=== PATIENT | female | born 1945 | race Caucasian/White ===

== ENCOUNTER 2019-06-26 12:17 | Emergency (ER) | payer BC, OTHER ==
[~2019-06-26] VITALS: Ht 170.2 cm; Wt 62.6 kg
[2019-06-26 12:24] VITALS: BP_SYST 120
--- NOTE | 2019-06-26 12:31 | NUR ---
Patient to ER bed 6 to gown for evaluation. Side rails up. Report given to Fran LEIJA.
--- NOTE | 2019-06-26 12:31 | NUR ---
Patient is awake, alert, and oriented x4. Kimber reports that she was getting up from her couch on afternoon and started feeling pain in her left knee. Patient is complaining of sharp left knee pain 9/10, made worse when she extends her leg.
--- NOTE | 2019-06-26 12:34 | NUR ---
ER at bedside examining patient.
[2019-06-26] MEDS ORDERED: KETOROLAC TROMETHAMINE 60 MG/2 ML VIAL IM ONE (12:45)
--- NOTE | 2019-06-26 13:03 | NUR ---
PATIENT GETTING X RAY IN BED.
[2019-06-26 13:49] VITALS: BP_SYST 120
--- NOTE | 2019-06-26 13:49 | NUR ---
Patient given written and verbal discharge instructions and verbalizes understanding. ER MD discussed with patient the results and treatment provided. Patient in stable condition. ID arm band removed. Rx of naproxen, tramadol given. Patient educated on pain management and to follow up with PMD. Pain Scale 0/10. Opportunity for questions provided and answered. Medication side effect fact sheet provided.
== END 2019-06-26 13:49 | disposition home or self-care (01) ==
LOC: SED 12:17
DX: S83.92XA Sprain of unspecified site of left knee, initial encounter (principal); Z88.5 Allergy status to narcotic agent; X58.XXXA Exposure to other specified factors, initial encounter; Y93.89 Activity, other specified; Y92.89 Other specified places as the place of occurrence of the external cause; Y99.8 Other external cause status
CPT/HCPCS: 73564; 96372; 99283; J1885

== ENCOUNTER 2019-10-20 16:06 | Emergency (ER) | payer OTHER ==
[~2019-10-20] VITALS: Ht 170.2 cm; Wt 63.5 kg
[2019-10-20 16:45] VITALS: BP_SYST 140
--- NOTE | 2019-10-20 16:50 | NUR ---
Patient to ER bed 03 to gown for evaluation. Side rails up.
--- NOTE | 2019-10-20 16:53 | NUR ---
Patient arrived in the ED c/o mild abdominal pain with vomiting x3 for 1 day. Denied any shortness of breath. Alert and oriented x4, respirations even and unlabored, ambulating with a steady gait, speaking in full sentences. VS WNL, pain level 6/10. at bedside. Informed of the wait time. Instructed to notify ED staff if there are any changes in condition or worsening of symptoms. Patient verbalized understanding.
--- NOTE | 2019-10-20 16:55 | NUR ---
ECG done at bedside. Patient tolerated the procedure well.
[2019-10-20 16:58] LABS: BASOPHILS % (AUTO) 0.4 % (0.0-2.0); EOSINOPHILS % (AUTO) 0.6 % (0.0-4.0); HEMATOCRIT 45.9 % (36-48); HEMOGLOBIN 15.4 g/dL (12.0-16.0); LYMPHOCYTES # (AUTO) 0.8 K/uL (1.0-5.5); LYMPHOCYTES % (AUTO) 8.8 % (20.5-51.5); MEAN CORPUSCULAR HEMOGLOBIN 32 pg (27-31); MEAN CORPUSCULAR HGB CONC 34 % (32-36); MEAN CORPUSCULAR VOLUME 94 fL (79.0-98.0); MONOCYTES # (AUTO) 0.5 K/uL (0.0-1.0); MONOCYTES % (AUTO) 5.5 % (1.7-9.3); NEUTROPHILS # (AUTO) 7.2 K/uL (1.8-7.7); NEUTROPHILS % (AUTO) 84.7 % (40.0-70.0); PLATELET COUNT (AUTO) 138 K/uL (130-430); RED BLOOD CELL COUNT(AUTO) 4.89 MIL/uL (4.2-6.2); RED CELL DISTRIBUTION WIDTH 14.4 % (9.0-15.0); WHITE BLOOD COUNT (AUTO) 8.5 K/uL (4.8-10.8)
[2019-10-20 17:03] LABS: ANION GAP 10 (5-15); CALCIUM 7.9 mg/dL (8.4-11.0); CHLORIDE 98 mmol/L (98-107); CREATININE 0.71 mg/dL (0.55-1.30); GLUCOSE 126 mg/dL (70-99); SODIUM SERUM 138 mmol/L (136-145); UREA NITROGEN, BLOOD 27 mg/dL (8-21)
[2019-10-20 17:08] LABS: ALANINE AMINOTRANSFERASE 130 U/L (12-78); ALBUMIN 4.4 g/dL (3.4-4.8); ASPARTATE AMINOTRANSFERASE 148 U/L (10-37); LIPASE 261 U/L (73-393); TOTAL BILIRUBIN 0.9 mg/dL (0.0-1.0)
[2019-10-20 17:10] LABS: POTASSIUM 2.9 mmol/L (3.5-5.1)
--- NOTE | 2019-10-20 17:24 | NUR ---
BETTY Daniels at bedside examining patient.
--- NOTE | 2019-10-20 17:25 | NUR ---
Administered KDur PO as ordered by Dr. Daniels. Patient tolerated the medication well.
[2019-10-20 17:29] LABS: BLOOD, URINE NEGATIVE (NEGATIVE); CLARITY/URINE CLEAR (CLEAR); GLUCOSE,URINE NEGATIVE (NEGATIVE); KETONES,URINE 1+ (NEGATIVE); LEUKOCYTE ESTERASE ,URINE NEGATIVE (NEGATIVE); NITRITE, URINE NEGATIVE (NEGATIVE); PROTEIN URINE TRACE (NEGATIVE)
[2019-10-20] MEDS ORDERED: POTASSIUM CHLORIDE 20 MEQ TAB.PRT.SR PO ONE (17:30)
[2019-10-20] MEDS ORDERED: ONDANSETRON HCL 4 MG/2 ML VIAL IVP ONE (17:30)
[2019-10-20] MEDS ORDERED: NACL 0.9% 1,000 ML IV ONE (17:30)
[2019-10-20] MEDS ORDERED: KETOROLAC TROMETHAMINE 30 MG VIAL IVP ONE (17:30)
[2019-10-20 17:37] LABS: BILIRUBIN,URINE NEGATIVE (NEGATIVE); COLOR,URINE AMBER (YELLOW)
[2019-10-20 17:38] LABS: BACTERIA,URINE FEW /HPF (None Seen); RBC,URINE 0-3 /HPF (0-3); WBC,URINE 0-3 /HPF (0-3)
[2019-10-20 17:39] LABS: MUCUS,URINE 1+ /LPF (None Seen)
--- NOTE | 2019-10-20 17:40 | NUR ---
# 18 gauge angiocath placed to RAC. Use of asceptic technique. Opsite placed over site. Blood return noted. Flushed with 10 cc of normal saline. No evidence of infiltration noted. Patient tolerated well.
--- NOTE | 2019-10-20 17:45 | NUR ---
Administered Toradol and Zofran IVP as ordered by Dr. Daniels. Patient tolerated the medications well.
--- NOTE | 2019-10-20 18:25 | NUR ---
Discontinued IV as ordered by Dr. Daniels. Catheter intact. Patient tolerated the procedure well.
--- NOTE | 2019-10-20 18:27 | NUR ---
Patient given written and verbal discharge instructions and verbalizes understanding. ER MD discussed with patient the results and treatment provided. Patient in stable condition. ID arm band removed. IV catheter removed intact and dressing applied, no active bleeding. Rx of Zofran given. Patient educated on pain management and to follow up with PMD. Pain Scale 0/10. Opportunity for questions provided and answered. Medication side effect fact sheet provided.
[2019-10-20 18:28] VITALS: BP_SYST 140
== END 2019-10-20 18:27 | disposition home or self-care (01) ==
LOC: SED 16:06
DX: A05.9 Bacterial foodborne intoxication, unspecified (principal); R11.10 Vomiting, unspecified; E87.6 Hypokalemia; Z90.49 Acquired absence of other specified parts of digestive tract; Z88.6 Allergy status to analgesic agent
CPT/HCPCS: 36415; 74176; 80053; 81000; 83605; 83690; 85025; 87040; 87086; 96361; 96374; 96375; 99284; J1885; J2405; J7030